=== PATIENT | female | born 1990 | race Caucasian/White ===

== ENCOUNTER 2016-12-04 10:45 | Inpatient (IN) | payer OTHER ==
[~2016-12-04] VITALS: Ht 170.2 cm; Wt 116.1 kg
[2016-12-04 11:37] LABS: BILIRUBIN 2+ mg/dL (NEGATIVE); BLOOD 3+ Ery/uL (NEGATIVE); COLOR YELLOW (YELLOW); GLUCOSE (U) NORMAL (NORMAL); KETONE (U) TRACE mg/dL (NEGATIVE); LEUKOCYTES 2+ Leu/uL (NEGATIVE); NITRITE NEGATIVE (NEGATIVE); PROTEIN 2+ mg/dL (NEGATIVE); pH 6.5 (5.0-9.0)
[2016-12-04 11:40] LABS: CLARITY SLIGHTLY HAZY (CLEAR)
[2016-12-04 11:43] LABS: BACTERIA 4+
[2016-12-04 11:46] LABS: AMPHETAMINES NEGATIVE (NEGATIVE); BARBITURATES NEGATIVE (NEGATIVE); BENZODIAZEPINES NEGATIVE (NEGATIVE); COCAINE NEGATIVE (NEGATIVE); MARIJUANA (THC) NEGATIVE (NEGATIVE); METHADONE NEGATIVE (NEGATIVE); TRICYCLIC ANTIDEPRESSANT NEGATIVE (NEGATIVE)
[2016-12-04 12:34] LABS: HCT 37.5 % (37.0-47.0); HGB 13.3 g/dl (12.5-16.0); MCH 30.8 pg (25.0-31.0); MCHC 35.5 g/dL (32.0-36.0); MCV 86.8 fL (78.0-100.0); MPV 12.6 fL (6.0-9.5); RBC 4.32 M/uL (4.20-5.40); RDW 14.1 % (11.5-14.0); WBC 8.3 K/uL (4.0-10.5)
[2016-12-04 12:52] LABS: BILIRUBIN - TOTAL 0.4 mg/dL (0.1-1.0); CREATININE 0.6 mg/dL (0.5-1.0); GLOBULIN (CALCULATION) 2.4 g/dL (2.2-4.2); TOTAL PROTEIN 5.4 g/dL (6.4-8.3); URIC ACID 6.1 mg/dL (2.4-5.7)
[2016-12-06 08:12] LABS: HCT 29.6 % (37.0-47.0); HGB 10.4 g/dl (12.5-16.0); MCH 30.7 pg (25.0-31.0); MCHC 35.1 g/dL (32.0-36.0); MCV 87.3 fL (78.0-100.0); MPV 11.6 fL (6.0-9.5); RBC 3.39 M/uL (4.20-5.40); RDW 13.9 % (11.5-14.0)
[2016-12-06 08:18] LABS: WBC 17.6 K/uL (4.0-10.5)
[2016-12-06 08:35] LABS: ALBUMIN 2.2 g/dL (3.5-5.0); BILIRUBIN - TOTAL 0.2 mg/dL (0.1-1.0); CREATININE 0.7 mg/dL (0.5-1.0); GLOBULIN (CALCULATION) 1.9 g/dL (2.2-4.2); POTASSIUM 3.8 mmol/L (3.5-5.1); TOTAL PROTEIN 4.1 g/dL (6.4-8.3)
== END 2016-12-08 11:45 | disposition home or self-care (01) | DRG 765 ==
LOC: FOB 10:45
PROVIDERS: ADMIT Obstetrics & Gynecology
PROC: 3E0P7GC Introduction of Other Therapeutic Substance into Female Reproductive, Via Natural or Artificial Opening (ICD-10-PCS; 2016-12-04)
PROC: 4A1HX4Z Monitoring of Products of Conception, Cardiac Electrical Activity, External Approach (ICD-10-PCS; 2016-12-05)
PROC: 10D00Z1 Extraction of Products of Conception, Low, Open Approach (ICD-10-PCS; principal; 2016-12-05 19:30)
DX: O14.14 Severe pre-eclampsia complicating childbirth (principal); R18.8 Other ascites; O36.0930 Maternal care for other rhesus isoimmunization, third trimester, not applicable or unspecified; Z3A.38 38 weeks gestation of pregnancy; Z37.0 Single live birth; O62.1 Secondary uterine inertia; O99.214 Obesity complicating childbirth; E66.9 Obesity, unspecified
CPT/HCPCS: 36415; 80053; 80305; 81001; 83615; 84550; 85461; 86850; 86900; 86901; 88307; J0456; J0610; J0690; J1580; J1885; J2274; J2405; J2790; J3010